=== PATIENT | male | born 1970 | race Caucasian/White ===

== ENCOUNTER 2024-07-14 13:28 | Emergency (ER) | payer SELFPAY ==
[2024-07-14] MEDS: Ketorolac 30 MG/ML SDV IM ONE (14:39)
== END 2024-07-14 16:17 | disposition home or self-care (01) ==
LOC: MW.ED 13:28
DX: S42.432A Displaced fracture (avulsion) of lateral epicondyle of left humerus, initial encounter for closed fracture (principal); R03.0 Elevated blood-pressure reading, without diagnosis of hypertension; W00.0XXA Fall on same level due to ice and snow, initial encounter; Z75.8 Other problems related to medical facilities and other health care
CPT/HCPCS: 73080; 96372; 99284; J1885

== ENCOUNTER 2025-01-30 08:06 | Day surgery (SDC) | payer SELFPAY ==
[~2025-01-30 08:06] MED LIST: Albuterol 0.083% 2.5 MG/3 ML Neb Soln NEB PRN; HYDROmorphone 1 MG/ML Syringe IVPUSH PRN; Metoclopramide 10 MG/2 ML SDV IVPUSH PRN; Morphine 2 MG/ML SYRINGE IVPUSH PRN; Naloxone 0.4 MG/ML SDV IVPUSH PRN; Ondansetron 4 MG/2 ML SDV IVPUSH PRN; Phenylephrine HCl In 0.9% NaCl 1 MG/10 ML Syringe IVPUSH PRN; fentaNYL 50 MCG/ML SDV IVPUSH PRN
[2025-01-30] MEDS ORDERED: Bupivacaine 0.5% 30 ML SDV ONE (08:41)
[2025-01-30] MEDS ORDERED: Lidocaine 1% 20 ML MDV ONE (08:41)
[2025-01-30] MEDS: Lactated Ringers 1,000 ML IV SCH (08:42)
[2025-01-30 08:44] LABS: HEMATOCRIT 43.7 % (42.0-52.0); HEMOGLOBIN 15.4 g/dL (14.0-18.0); MEAN CORPUSCULAR HEMOGLOBIN 33.3 pg (28.0-32.0); MEAN CORPUSCULAR HGB CONC 35.2 g/dL (32.0-36.0); MEAN CORPUSCULAR VOLUME 94.4 fL (83.0-99.0); MEAN PLATELET VOLUME 8.9 fL (9.4-12.4); PLATELET COUNT,PLT 414 K/uL (150-400); RED BLOOD CELL COUNT 4.63 M/uL (4.52-5.90)
[2025-01-30] MEDS ORDERED: Famotidine 20 MG/2 ML SDV ONE (08:59)
[2025-01-30] MEDS ORDERED: fentaNYL 100 MCG/2 ML SDV ONE (09:03)
[2025-01-30] MEDS ORDERED: Propofol 200 MG/20 ML SDV ONE (09:03)
[2025-01-30] MEDS ORDERED: Sodium Chloride 0.9% 20 ML ONE (09:03)
[2025-01-30] MEDS ORDERED: dexmedeTOMIDine HCl 200 MCG/2 ML SDV ONE (09:03)
[2025-01-30 09:07] LABS: A/G RATIO 0.9 (0.9-1.6); ALBUMIN 3.4 g/dL (3.4-5.0); BILIRUBIN TOTAL 0.4 mg/dL (0.2-1.0); CARBON DIOXIDE,CO2 27.4 mmol/L (21.0-32.0); CREATININE 1.1 mg/dL (0.8-1.3); EST CRCL DRUG DOSING (CG) 92.82 mL/min; POTASSIUM,K 4.1 mmol/L (3.5-5.1); PROTEIN TOTAL,TP 7.2 g/dL (6.4-8.2)
[2025-01-30] MEDS ORDERED: ePHEDrine 50 MG/ML SDV ONE (10:24)
[2025-01-30] MEDS ORDERED: Ondansetron 4 MG/2 ML SDV ONE (10:29)
[2025-01-30] MEDS ORDERED: Dexamethasone 4 MG/ML 5 ML MDV ONE (10:29)
[2025-01-30] MEDS ORDERED: Ketorolac 30 MG/ML SDV ONE (10:34)
[2025-01-30] MEDS ORDERED: Lactated Ringers 1,000 ML IV SCH (11:00)
== END 2025-01-30 11:35 | disposition home or self-care (01) ==
LOC: MW.SDS 08:06
PROVIDERS: ATTEND Surgery
DX: L72.0 Epidermal cyst (principal); L02.11 Cutaneous abscess of neck; I10 Essential (primary) hypertension; K21.9 Gastro-esophageal reflux disease without esophagitis; Z87.891 Personal history of nicotine dependence; Z79.899 Other long term (current) drug therapy
CPT/HCPCS: 10061; 36415; 80053; 85027; J0665; J1100; J1885; J2405; J2704; J3010; J7120; 00300; J3490